=== PATIENT | female | born 2005 ===

== ENCOUNTER 2024-06-28 13:13 | Emergency (ER) | payer BC ==
[~2024-06-28] VITALS: Ht 154.9 cm; Wt 81.8 kg
[2024-06-28 13:21] VITALS: BP 114/69; PULSE 92; RESP 16; TEMP 97.9; O2SAT 100
== END 2024-06-28 14:27 | disposition left against medical advice (07) ==
LOC: EMS 13:13
DX: L50.9 Urticaria, unspecified (principal); Z53.21 Procedure and treatment not carried out due to patient leaving prior to being seen by health care provider